=== PATIENT | female | born 1945 | race Caucasian/White ===

== ENCOUNTER 2019-05-28 20:36 | Emergency (ER) | payer MEDICARE, OTHER ==
[~2019-05-28] VITALS: Ht 162.6 cm; Wt 60.4 kg
[~2019-05-28 20:36] MED LIST: BUPR150T8 PO; CALC-965 PO; CHOL100010 PO; ESCI10TA PO; LISI-600 PO; MULTIVITAMIN; OMEG-72 PO; ROSU20TA2 PO; WALKERFR
[2019-05-28] MEDS ORDERED: LIDOcaine 1%/PF 5ML 10 MG/ML VIAL SQ ONE (21:05)
[2019-05-28] MEDS ORDERED: tetanus & diphtheria toxoid (Td) vaccine 0.5ml IMVAC ONE (21:05)
[2019-05-28] MEDS ORDERED: TETanus/Pertussis (Acell)/Diphther VAC/PF (Tdap-Adult) 0.5ml syringe IMVAC ONE (21:15)
[2019-05-28 22:04] VITALS: BP 125/70
== END 2019-05-28 22:06 | disposition home or self-care (01) ==
LOC: ER 20:37
DX: S61.412A Laceration without foreign body of left hand, initial encounter (principal); I48.91 Unspecified atrial fibrillation; E78.00 Pure hypercholesterolemia, unspecified; I10 Essential (primary) hypertension; Z98.890 Other specified postprocedural states; Z79.899 Other long term (current) drug therapy; W26.0XXA Contact with knife, initial encounter; Y93.89 Activity, other specified; Y92.090 Kitchen in other non-institutional residence as the place of occurrence of the external cause; Y99.9 Unspecified external cause status
CPT/HCPCS: 12002; 90471; 90715; 99284

== ENCOUNTER 2020-02-04 17:01 | Emergency (ER) | payer MEDICARE, OTHER ==
[~2020-02-04] VITALS: Ht 162.6 cm; Wt 68.7 kg
[2020-02-04 17:19] VITALS: BP 162/61
--- NOTE | 2020-02-04 17:50 | NUR ---
pt is 75 yo female c/o lac to rt index finger, smashed finger in door at 1700, no bleeding, pt is waiting to be evaluated
[2020-02-04] MEDS ORDERED: LIDOcaine 1% W/epiNEPHrine 1:200,000 10ml vial IJ ONE (18:00)
[2020-02-04] MEDS ORDERED: LIDOcaine 1% w/epiNEPHrine 1:200,000 30ml vial IJ ONE (18:05)
== END 2020-02-04 20:12 | disposition home or self-care (01) ==
LOC: ER 17:01
DX: S61.210A Laceration without foreign body of right index finger without damage to nail, initial encounter (principal); I48.91 Unspecified atrial fibrillation; E78.00 Pure hypercholesterolemia, unspecified; I10 Essential (primary) hypertension; F32.9 Major depressive disorder, single episode, unspecified; Z98.890 Other specified postprocedural states; Z72.89 Other problems related to lifestyle; Z79.899 Other long term (current) drug therapy; X58.XXXA Exposure to other specified factors, initial encounter; Y93.89 Activity, other specified; Y92.89 Other specified places as the place of occurrence of the external cause; Y99.8 Other external cause status
CPT/HCPCS: 12001; 73140; 99283